=== PATIENT | female | born 1970 | race African-American/Black ===

== ENCOUNTER 2018-11-19 06:27 | Day surgery (SDC) | payer OTHER ==
[~2018-11-19] VITALS: Ht 165.1 cm; Wt 120.2 kg
[2018-11-19 07:01] VITALS: BP 135/84
[2018-11-19 13:23] VITALS: BP 153/84
== END 2018-11-19 11:50 | disposition home or self-care (01) ==
LOC: DS 06:27 → OR 10:00 → GI 10:00 → DS 11:50
PROVIDERS: Internal Medicine Gastroenterology
PROC: 0DJD8ZZ Inspection of Lower Intestinal Tract, Via Natural or Artificial Opening Endoscopic (ICD-10-PCS; principal; 2018-11-19 10:00)
DX: Z12.11 Encounter for screening for malignant neoplasm of colon (principal); K64.8 Other hemorrhoids; E89.0 Postprocedural hypothyroidism; Z86.010 Personal history of colon polyps; I10 Essential (primary) hypertension; Z85.850 Personal history of malignant neoplasm of thyroid; Z90.710 Acquired absence of both cervix and uterus; Z90.49 Acquired absence of other specified parts of digestive tract; Z87.891 Personal history of nicotine dependence; Z79.82 Long term (current) use of aspirin; Z79.84 Long term (current) use of oral hypoglycemic drugs; Z68.41 Body mass index [BMI] 40.0-44.9, adult
CPT/HCPCS: 45378; 99153; J1200; J1610; J2250; J2310; J3010; J3490